=== PATIENT | female | born 1955 | race Caucasian/White ===

== ENCOUNTER 2017-04-22 11:36 | Emergency (ER) | payer MEDICARE, OTHER ==
[~2017-04-22] VITALS: Ht 160 cm; Wt 113.4 kg
[2017-04-22] MEDS ORDERED: NAPROSYN500 MG PO (12:42)
== END 2017-04-22 13:01 | disposition home or self-care (01) ==
LOC: ED 11:36
PROC: 2W3QX1Z Immobilization of Right Lower Leg using Splint (ICD-10-PCS; principal; 2017-04-22)
DX: S93.601A Unspecified sprain of right foot, initial encounter (principal); I10 Essential (primary) hypertension; E11.9 Type 2 diabetes mellitus without complications; Z86.73 Personal history of transient ischemic attack (TIA), and cerebral infarction without residual deficits; X50.0XXA Overexertion from strenuous movement or load, initial encounter; Z90.49 Acquired absence of other specified parts of digestive tract; Z98.84 Bariatric surgery status
CPT/HCPCS: 29515; 73630; 99283